=== PATIENT | male | born 1990 | race Caucasian/White ===

== ENCOUNTER 2018-04-14 23:37 | Emergency (ER) | payer BC, OTHER ==
--- NOTE | 2018-04-14 23:40 | PDOC ---
History of Present Illness - General History Source: Patient Exam Limitations: No Limitations - History of Present Illness Initial Comments: 04/15/18 00:03 The patient is a 28 year old male, with a significant PMH of asthma since 2011, who presents to the emergency department complaining of having a asthma attack. The patient states he has been having issues with his respiration for the past two days but symptoms worsened today. The patients states he used his inhaler multiple times today but no signs of relief. The patient reports endorsing associated symptoms of chills, fever, cough and sore throat. The patient denies chest pain, headache and dizziness.Denies nausea, vomit, diarrhea and constipation. Denies dysuria, frequency, urgency and hematuria. PAST MEDICAL HISTORY: no significant history PAST SURGICAL HISTORY: no significant history FAMILY HISTORY: no pertinent history SOCIAL HISTORY: Pt lives with family and is employed. MEDICATIONS: reviewed ALLERGIES: As per nursing notes Adult ROS General:+Fever, +Chills. No weakness, no weight loss HEENT: +Sore throat. No change in vision. No ear pain CardioVascular: +SOB. No chest pain. Respiratory:+cough +wheezing. Gastrointestinal: no nausea, vomiting, diarrhea or constipation, No rectal bleeding Genitourinary: No dysuria, hematuria, or frequency Musculoskeletal: No joint or muscle pain or swelling Neurologic: No headache, vertigo, dizziness or loss of consciousness Psychiatric: nor depression Skin: No rashes or easy bruising Endocrine: no increased thirst or abnormal weight change Allergic: no skin or latex allergy All other systems reviewed and normal Adult Exam: General: Well-nourished well-developed individual, no acute distress HEENT: Throat: Normal, tonsils normal, no erythema or exudate Neck: Supple, no meningeal signs, no lymphadenopathy Eyes::Pupils equal reactive and round, extraocular motion intact Chest: Nontender to palpation Cardiac: S1-S2 normal, regular rate and rhythm, no murmurs rubs or gallops Respiratory: +Moderate respiratory distress and diaphoretic. Decreased breath sounds with diffuse wheezing bilaterally, expiratory phase greater than inspiratory phase. Mild use of expiratory muscle with inspiration. Abdomen: Soft, nondistended, normal bowel sounds, nontender to palpation diffusely Extremities: Warm, dry, no cyanosis, clubbing, or edema Skin: No rashes Neuro: Alert and oriented x3, nonfocal exam, grossly intact, normal gait Psych: Normal mood and affect 04/15/18 00:07 <Uma Shannon - Last Filed: 04/15/18 00:07> - General History Source: Patient Exam Limitations: No Limitations - History of Present Illness Initial Comments: 04/15/18 00:23 Medical decision making: This is a 28-year-old male who comes in complaining of acute exacerbation of asthma. Patient has history of asthma and said that he was admitted to the hospital 1 time many years ago for his asthma otherwise patient has had a couple of days now of increased respiratory distress difficulty secondary to his asthma. Patient has been using his inhaler at home without relief. On arrival in the emergency room patient's O2 sat is 95% and he is in moderate respiratory distress. Patient started on DuoNeb nebs [id number] and given 60 mg of prednisone by mouth. Reassessment after second DuoNeb patient's has some mild wheezing still there is no use of accessory muscles and he has more comfortable. Continue with her neb and if patient is still not sufficiently improved will consider observation admission. 01:00 Reevaluation patient still has some mild wheezing bilateral however air entry is good and his O2 sats are 98% on room air. Patient said he feels much better feels like he would like to go home. Patient will be sent home with a prescription for a burst of steroids and will continue his inhalers. <Susana Motta I - Last Filed: 04/15/18 01:12> - General Chief Complaint: Asthma Stated Complaint: ASTHMA Time Seen by Provider: 04/14/18 23:39 Past History <Uma Shannon - Last Filed: 04/15/18 00:07> - Past Medical History Asthma: Yes Kidney Stones: Yes - Suicide/Smoking/Psychosocial Hx Smoking Status: Yes Smoking History: Current every day smoker Number of Cigarettes Smoked Daily: 1 Drug/Substance Use Hx: Yes Substance Use Type: Cocaine, Heroin Hx Substance Use Treatment: Yes <Susana Motta I - Last Filed: 04/15/18 01:12> - Past Medical History Allergies/Adverse Reactions: Allergies Allergy/AdvReac Type Severity Reaction Status Date / Time No Known Allergies Allergy Verified 02/20/12 17:13 Home Medications: Ambulatory Orders Albuterol So4/Ipratropium [Combivent] 1 inh PO BID PRN 02/20/12 Buprenorphine/Naloxone [Suboxone 2 mg/0.5 mg Sl Film] 1 combo SL ONCE 02/20/12 Creatinine 3 gm PO DAILY 02/20/12 Fluticasone/Salmeterol [Advair 100-50 Diskus] 1 each IH DAILY 02/20/12 Glutamine [Nutrestore] 4 gm PO DAILY 02/20/12 Magnesium Citrate [Citroma -] 300 ml PO ONCE #1 bottle 02/20/12 Montelukast Na [Singulair] 10 mg PO DAILY 02/20/12 Multivitamin [Multi-Day Vitamins] 1 each PO DAILY 02/20/12 Polyethylene Glycol 3350 [Miralax 119 gm Btl] 17 gm PO DAILY #1 bottle 02/20/12 Sodium Phosphate/Na Biphos [Fleet Adult Rectal Enema] 133 ml RC ONCE #0 enema predniSONE [Deltasone -] 40 mg PO DAILY #8 tablet 04/15/18 *Physical Exam - Vital Signs Last Vital Signs Temp Pulse Resp BP Pulse Ox 98.1 F 123 H 20 146/85 95 04/14/18 23:38 04/14/18 23:38 04/14/18 23:38 04/14/18 23:38 04/14/18 23:38 <Uma Shannon - [place] Filed: 04/15/18 00:07> ED Treatment Course - Medications Given in the ED: ED Medications Discontinued Medications Generic Name Dose Route Start Last Admin Trade Name Freq PRN Reason Stop Dose Admin Acetaminophen 1,000 mg 04/14/18 23:58 04/14/18 23:59 Tylenol - PO 04/14/18 23:59 1,000 mg ONCE ONE Administration Prednisone 60 mg 04/14/18 23:44 04/14/18 23:46 Deltasone - PO 04/14/18 23:45 60 mg ONCE ONE Administration <Uma Shannon - [place] Filed: 04/15/18 00:07> *DC/Admit/Observation/Transfer - Attestations Scribe Attestion: 04/15/18 00:05 Documentation prepared by Uma Shannon, acting as medical massage therapist for Susana Motta MD. <Uma Shannon - Last Filed: 04/15/18 00:07> - Discharge Dispostion Decision to Admit order: No <PradeepCamilleSusana franklin I - Last Filed: 04/15/18 01:12> Diagnosis at time of Disposition: Asthma exacerbation - Discharge Dispostion Disposition: HOME Condition at time of disposition: Stable - Patient Instructions Printed Discharge Instructions: Asthma -- Adult Additional Instructions: Take prednisone 40 mg a day for the next 4 days. Continue to use your nebulizers as prescribed. Return to the emergency department immediately with ANY new, persistent or worsening symptoms. Continue any medications as previously prescribed by your physician. You should follow up with your primary doctor as soon as possible regarding today's emergency department visit. . Please make sure your doctor reviews the results of your emergency evaluation. Thank you for coming to the Emergency Department today for your care. It was a pleasure to see you today. Please note that your evaluation is INCOMPLETE until you follow-up with your doctor.
[2018-04-14] MEDS ORDERED: ALBUTEROL SO4 2.5/IPRATROPIUM 0.5 INH SOL 3 ML VIAL.NEB. NEB ONE (23:43)
[2018-04-14] MEDS ORDERED: predniSONE 20 MG TABLET (UD) ONE (23:43)
[2018-04-14] MEDS ORDERED: predniSONE 20 MG TABLET (UD) PO ONE (23:44)
[2018-04-14] MEDS: ALBUTEROL SO4 2.5/IPRATROPIUM 0.5 INH SOL 3 ML VIAL.NEB. NEB SCH (23:46)
[2018-04-14 23:53] VITALS: TEMP 98.1; BMI 17.9
[2018-04-14] MEDS ORDERED: ACETAMINOPHEN 500 MG TABLET (FP) PO ONE (23:58)
[2018-04-14] MEDS ORDERED: ACETAMINOPHEN 500 MG TABLET (FP) ONE (23:58)
[2018-04-15] MEDS: ALBUTEROL SO4 2.5/IPRATROPIUM 0.5 INH SOL 3 ML VIAL.NEB. NEB SCH ×3 (00:24→01:18)
[2018-04-15 00:59] VITALS: BP 110/78; PULSE 108
== END 2018-04-15 01:22 | disposition home or self-care (01) ==
LOC: FER 23:37
DX: J45.901 Unspecified asthma with (acute) exacerbation (principal)
CPT/HCPCS: 99281-25; J7620